=== PATIENT | female | born 1965 | race American Indian/Alaskan Native ===

== ENCOUNTER 2018-07-01 08:02 | Day surgery (SDC) | payer BC ==
[~2018-07-01 08:02] MED LIST: ANCEF/STERILE WATER 2 GM/20 ML 2 GM/20 ML SYRINGE IV NR; NACL 0.9% 1000 ML 1,000 ML IV SCH
[2018-07-01 08:44] LABS: Basophils % (Auto) 0.7 % (0.0-1.8); Eosinophils # (Auto) 0.1 K/mm3 (0.0-0.4); Hematocrit 38.5 % (30.3-42.9); Hemoglobin 12.8 gm/dl (10.1-14.3); Lymphocytes # (Auto) 1.9 K/mm3 (1.2-5.4); Lymphocytes % (Auto) 37.4 % (13.4-35.0); Mean Corpuscular HGB Conc 33 % (30-34); Mean Corpuscular Hemoglobin 28 pg (28-32); Mean Corpuscular Volume 84 fl (79-97); Monocytes # (Auto) 0.4 K/mm3 (0.0-0.8); Monocytes % (Auto) 7.6 % (0.0-7.3); Platelet Count 255 K/mm3 (140-440); Red Cell Distribution Width 13.5 % (13.2-15.2)
[2018-07-01 08:57] LABS: BUN/Creatinine Ratio 20; Blood Urea Nitrogen 12 mg/dL (7-17); Calcium 9.6 mg/dL (8.4-10.2); Hemolysis Index 4
[2018-07-01 09:12] LABS: INR 0.93 (0.87-1.13)
[2018-07-01 09:13] LABS: Partial Thromboplastin Time 25.7 Sec. (24.2-36.6)
[2018-07-01] MEDS ORDERED: VERSED IV NR (09:54)
[2018-07-01] MEDS ORDERED: HEPARIN/NS 5000 UNIT/500ML(CATH LAB) 1,000 ML IR ONE (09:59)
[2018-07-01] MEDS ORDERED: HEPARIN 10,000 UNITS/10 ML ONE (09:59)
[2018-07-01] MEDS ORDERED: ANCEF/STERILE WATER 2 GM/20 ML 0 GM/0 ML SYRINGE IV ONE (10:00)
[2018-07-01] MEDS ORDERED: TORADOL ONE (10:00)
[2018-07-01] MEDS ORDERED: NACL 0.9% 500 ML 0 ML ONE (10:00)
[2018-07-01] MEDS: VERSED IV ONE ×2 (10:33→10:37)
[2018-07-01] MEDS: SUBLIMAZE ONE ×2 (10:33→10:47)
[2018-07-01] MEDS: XYLOCAINE 2% INFILTRATI ONE ×2 (10:35→10:37)
[2018-07-01] MEDS ORDERED: BENADRYL ONE (10:55)
[2018-07-01] MEDS ORDERED: VERSED ONE (11:05)
[2018-07-01] MEDS ORDERED: SUBLIMAZE ONE (11:05)
--- NOTE | 2018-07-01 12:24 | Short Stay Summary ---
Short Stay Documentation Date of service: 07/01/18 - History Principal diagnosis: compression of vein H&P: obtained from office - Allergies and Medications Current Medications: Allergies No Known Allergies Allergy (Verified 07/01/18 08:32) Active Medications Sodium Chloride (Nacl 0.9% 1000 Ml) 1,000 mls @ 42 mls/hr IV DIRECT BILLIE Last Admin: 07/01/18 09:06 Dose: 42 mls/hr - Brief post op/procedure progress note Date of procedure: 07/01/18 Pre-op diagnosis: compression of Vein Post-op diagnosis: same Procedure: BLE venogram, IVUS, venoplasty and stent placememnt Anesthesia: local Surgeon: ESTUARDO REBOLLAR Estimated blood loss: minimal Pathology: none Condition: stable - Disposition Condition at discharge: Good Disposition: DC-01 TO HOME OR SELFCARE Short Stay Discharge Plan Activity: advance as tolerated Weight Bearing Status: Weight Bear as Tolerated Diet: regular Wound: keep clean and dry, per your surgeon's advice Follow up with: PRIMARY CARE, [Primary Care Provider] - 7 Days
--- NOTE | 2018-07-01 12:31 | Operative Report ---
Operative Report Operative Report: Exam: Bilateral lower extremity deep venogram, second-order selection of left gonadal vein, bilateral lower extremity intravascular ultrasound, bilateral lower extremity vena plasty with stent placement Clinical indication: Patient with a history of venous hypertension of bilateral lower extremities and extrinsic compression of her iliac veins Date: 07/01/2018 Procedure: Following an explanation of the risks, benefits and alternatives; written informed consent was obtained. The patient was brought to the angiographic suite and placed in supine position on the exam table. Initial ultrasound evaluation of her legs demonstrated patent femoral veins proximally bilaterally. The patient's legs and proximal thighs were prepped and draped in the usual sterile fashion. 1% lidocaine was used for anesthesia. Under ultrasound guidance, the right proximal femoral vein was cannulated with a 7 cm 18-gauge needle. A 0.035 guidewire was advanced centrally. The needle was removed and a 5 Congolese sheath placed. Access to the left proximal femoral vein was obtained in a similar fashion and a second 5 Congolese sheath placed. Contrast was injected through the sheaths was demonstrated near complete occlusion of the left common iliac vein with extensive pelvic and gonadal vein collaterals. Contrast injected to the right she demonstrated 40-50% stenosis involving the right external iliac vein. A C2 cover catheter was advanced through the right sheath over the 0.035 guidewire. Selective cannulation of the left renal vein was performed. Contrast was injected which demonstrates no extrinsic compression of the left renal vein. The origin of the left gonadal vein was identified and cannulated with the guidewire and catheter. Together the guidewire catheter were advanced to the level of the pelvis. Contrast was injected which demonstrated brisk flow towards the left renal vein. The gonadal vein is only minimally enlarged. A decision was made to proceed further with intravascular ultrasound. The sheaths were upsized over the guidewire for 10 Congolese sheaths bilaterally. Intervascular ultrasound was performed through the right sheath from the IVC to the sheath insertion site. The IVC is widely patent. The right common iliac vein is patent. There is 50% stenosis involving the right external iliac vein and the right common femoral vein is patent. Intravascular ultrasound was then performed through the left sheath from the IVC to the C6 insertion site. The IVC is again patent. There is a 99% stenosis involving the left common iliac vein. Prestenotic dilatation is present. The left external iliac vein and left common femoral vein are patent. A decision was made to treat these lesions with stent. A 16 mm x 90 mm wall stent was advanced through the left sheath and positioned from the distal IVC to the external iliac vein. A second 16 x 90 mm wall stent was advanced through the right sheath in position from the distal IVC to the external iliac vein. Since were deployed simultaneously in a kissing fashion. Stents were then seated using 14 mm Kirk. Post stent deployment imaging demonstrated reduction of the stenoses to less than 10% bilaterally. There is prompt opacification and brisk flow throughout the iliac veins with nonvisualization of the numerous pelvic collateral vessels that had been imaged before. At this point, the catheters, guidewires and sheaths were removed and hemostasis achieved using manual compression. Sterile compression dressings were placed. The patient tolerated the procedure well. There were no immediate post procedure complications. Conscious sedation was performed under the guidance of radiologic nursing. Continuous cardiopulmonary monitoring was utilized. Impression: 1) Bilateral lower extremity venogram demonstrating significant stenosis involving the left common iliac vein and right external iliac vein. 2 ) Second-order venous selection of the left gonadal vein demonstrating only minimal dilatation but with appropriate flow. 3) Intravascular ultrasound performed through the IVC, bilateral common iliac veins, bilateral external iliac veins in bilateral common femoral veins demonstrating 99% stenosis of the left common iliac vein and 50% stenosis involving the right external iliac vein. 4) Treatment of these above-mentioned lesions with stent placement and venoplasty with residual less than 10% stenosis
[2018-07-01 13:20] VITALS: BP 128/68
== END 2018-07-01 08:03 | disposition home or self-care (01) ==
LOC: CATHLABREC 08:02
PROVIDERS: ATTEND Radiology Diagnostic Radiology
DX: I87.1 Compression of vein (principal); I87.303 Chronic venous hypertension (idiopathic) without complications of bilateral lower extremity; K21.9 Gastro-esophageal reflux disease without esophagitis; I10 Essential (primary) hypertension; M19.90 Unspecified osteoarthritis, unspecified site; Z79.899 Other long term (current) drug therapy; Z98.890 Other specified postprocedural states; Z80.9 Family history of malignant neoplasm, unspecified
CPT/HCPCS: 36012; 36415; 37238; 37239; 37252; 37253; 75822; 75831; 76937; 80048; 85025; 85610; 85730; 99156; 99157; C1725; C1751; C1753; C1769; C1876; C1894; J1200; J1644; J1885; J2250; J3010; J7030; J0690; J7040; Q9967